=== PATIENT | male | born 1950 | race Caucasian/White ===

== ENCOUNTER 2019-06-13 14:47 | Inpatient (IN) ==
[2019-06-13] MEDS ORDERED: Aspirin 81 MG TAB.CHEW PO ONE (14:51)
[2019-06-13] MEDS ORDERED: *HR* Metoprolol 5 MG/5 ML VIAL IVP ONE (15:00)
[2019-06-13 15:12] LABS: Basophils % 0.5 %; Hematocrit 42.7 % (37.5-50.1); Hemoglobin 14.1 g/dL (12.9-16.9); Immature Granulocytes % 1.3 % (0-4); Lymphocytes # 0.2 K/mcL (0.6-4.6); Lymphocytes % 3.2 %; Mean Corpuscular Hemoglobin 35.8 pg (28.0-33.3); Mean Corpuscular Volume 108.4 fL (83.0-100.0); Mean Platelet Volume 11.3 fL (9.4-12.4); Monocytes # 0.5 K/mcL (0.0-1.3); Neutrophils # 6.5 K/mcL (1.6-8.9); Platelet Count 143 K/mcL (140-400); Red Blood Count 3.94 M/mcL (4.19-5.50); Red Cell Distribution Width 15.9 % (11.5-14.5); White Blood Count 7.4 K/mcL (4.3-11.1)
[2019-06-13 15:18] LABS: INR 1.1; Prothrombin Time 12.3 Seconds (9.4-12.1)
[2019-06-13 15:20] LABS: Activated Partial Thrombo Time 27.3 Seconds (26.0-36.0)
[2019-06-13 15:43] LABS: BUN/Creatinine Ratio 37 (6-26); Blood Urea Nitrogen 31 mg/dL (8-23); Calcium 10.1 mg/dL (8.6-10.3); Carbon Dioxide 26 mEq/L (23-29); Chloride 97 mEq/L (98-107); Glucose 151 mg/dL (70-105); Lipase 19 Units/L (11-82); Osmolality,Calculated 297 (280-300); Potassium 4.6 mEq/L (3.5-5.1); Sodium 139 mEq/L (136-145); Troponin I 0.05 ng/mL (< 0.04); eGFR For African Americans > 60 (> 60); eGFR For Non-African Americans > 60 (> 60)
[2019-06-13] MEDS ORDERED: Naloxone 0.4 MG/ML INJ IVP PRN (16:33)
[2019-06-13] MEDS ORDERED: *HR* Heparin 5,000 UNIT/ML VIAL IVP PRN ×2 (16:36)
[2019-06-13] MEDS ORDERED: *HR* Heparin 5,000 UNIT/ML VIAL IVP ONE (16:36)
[2019-06-13 16:43] LABS: Thyroid Stimulating Hormone 1.875 mcIU/mL (0.340-5.600)
[2019-06-13] MEDS ORDERED: Heparin 25,000 UNIT/250 ML D5W 25,000 UNIT/250 ML IV.SOLN IVC SCH (16:45)
[2019-06-13] MEDS ORDERED: Ciprofloxacin HCL Soln 5 ML BOTTLE RIGHT EYE SCH (17:15)
[2019-06-13] MEDS: Furosemide 40 MG/4 ML VIAL IVP SCH (18:54)
[2019-06-13] MEDS: Gabapentin 300 MG CAPSULE PO SCH (20:00)
[2019-06-13] MEDS: Ciprofloxacin HCL Soln 5 ML BOTTLE BOTH EYES SCH (20:01)
[2019-06-13] MEDS ORDERED: Perflutren Lipid Microsphere 1.3 ML in 0.9 % Sodium Chloride 8.7 ML IVP ONE (20:57)
[2019-06-13] MEDS: *HR* Metoprolol 5 MG/5 ML VIAL IVP PRN (21:49)
[2019-06-14] MEDS: Ciprofloxacin HCL Soln 5 ML BOTTLE BOTH EYES SCH ×4 (00:36→14:51)
[2019-06-14 02:52] LABS: Basophils % 0.2 %; Hematocrit 41.3 % (37.5-50.1); Hemoglobin 13.5 g/dL (12.9-16.9); Immature Granulocytes % 1.1 % (0-4); Lymphocytes # 0.6 K/mcL (0.6-4.6); Lymphocytes % 7.1 %; Mean Corpuscular HGB Conc 32.7 g/dL (31.6-35.5); Mean Corpuscular Hemoglobin 35.3 pg (28.0-33.3); Mean Corpuscular Volume 108.1 fL (83.0-100.0); Mean Platelet Volume 11.8 fL (9.4-12.4); Monocytes # 0.7 K/mcL (0.0-1.3); Monocytes % 8.1 %; Neutrophils # 6.7 K/mcL (1.6-8.9); Platelet Count 147 K/mcL (140-400); Red Blood Count 3.82 M/mcL (4.19-5.50); Red Cell Distribution Width 15.9 % (11.5-14.5); Segmented Neutrophils % 83.5 %
[2019-06-14 03:28] LABS: BUN/Creatinine Ratio 44 (6-26); Blood Urea Nitrogen 38 mg/dL (8-23); Calcium 9.8 mg/dL (8.6-10.3); Carbon Dioxide 22 mEq/L (23-29); Chloride 102 mEq/L (98-107); Glucose 117 mg/dL (70-105); Magnesium 2.1 mg/dL (1.6-2.6); Osmolality,Calculated 298 (280-300); Phosphorous 3.4 mg/dL (2.7-4.5); Potassium 4.5 mEq/L (3.5-5.1); Sodium 139 mEq/L (136-145); Troponin I 0.07 ng/mL (< 0.04); eGFR For African Americans > 60 (> 60); eGFR For Non-African Americans > 60 (> 60)
[2019-06-14] MEDS: *HR* Metoprolol 5 MG/5 ML VIAL IVP PRN (03:57)
[2019-06-14] MEDS ORDERED: 0.9 % Sodium Chloride 500 ML IVC PRN (04:09)
[2019-06-14] MEDS ORDERED: Azithromycin 500 MG in 0.9 % Sodium Chloride 250 ML IVPB SCH (08:00)
[2019-06-14] MEDS ORDERED: Lisinopril 20 MG TABLET PO SCH (09:00)
[2019-06-14] MEDS ORDERED: cefTRIAXone 1,000 MG in Water for inj. (sterile) 10 ML IVP SCH (09:00)
[2019-06-14] MEDS ORDERED: Aspirin 81 MG TAB.CHEW PO SCH (09:00)
[2019-06-14] MEDS ORDERED: Metoprolol XL (24 HR) Succ 25 MG TAB.ER.24H PO SCH (09:00)
[2019-06-14] MEDS ORDERED: D5% in Water 250 ML ONE (09:43)
[2019-06-14] MEDS ORDERED: Artificial Tears SOLN 15 ML BOTTLE BOTH EYES PRN (09:44)
[2019-06-14] MEDS ORDERED: Sodium Bicarbonate 150 MEQ in D5% in Water 1,000 ML IVC SCH (09:45)
[2019-06-14] MEDS ORDERED: FentaNYL (PF) 1,000 MCG in 0.9 % Sodium Chloride 80 ML IVC SCH (09:45)
[2019-06-14] MEDS ORDERED: Dexmedetomidine HCl 400 MCG/100 ML MLS IVC SCH (09:45)
[2019-06-14] MEDS: EPINEPHrine 1 MG in D5% in Water 250 ML IVC SCH ×2 (09:46→11:25)
[2019-06-14 10:01] LABS: Calcium 11.7 mg/dL (8.6-10.3); Magnesium 2.6 mg/dL (1.6-2.6); Potassium 4.5 mEq/L (3.5-5.1)
[2019-06-14 10:06] LABS: Troponin I 0.12 ng/mL (< 0.04)
[2019-06-14] MEDS ORDERED: Sodium Bicarbonate 50 MEQ/50 ML VIAL IVP ONE ×2 (10:28→10:56)
[2019-06-14] MEDS ORDERED: Isovue-370 500 ML BOTTLE IVP ONE (10:29)
[2019-06-14] MEDS ORDERED: *HR* Atropine Sulfate 1 MG/10 ML SYRINGE IVP ONE ×3 (10:58→15:00)
[2019-06-14] MEDS ORDERED: EPINEPHrine 5 MG in D5% in Water 250 ML IVC SCH (11:00)
[2019-06-14 11:21] LABS: VBG HCO3 22 mEq/L (21-27); VBG PCO2 118 mmHg (41-51); VBG PH 6.89 pH Units (7.32-7.42); VBG PO2 < 17 mmHg (25-50)
[2019-06-14] MEDS ORDERED: 0.9 % Sodium Chloride 250 ML ONE (11:21)
[2019-06-14] MEDS ORDERED: EPINEPHrine 1 MG/ML VIAL ONE (11:21)
[2019-06-14] MEDS ORDERED: *HR* EPINEPHrine 1 MG/10 ML SYRINGE IVP ONE ×3 (11:22→16:45)
[2019-06-14] MEDS: Furosemide 40 MG/4 ML VIAL IVP SCH (11:25)
[2019-06-14] MEDS: Gabapentin 300 MG CAPSULE PO SCH (11:25)
[2019-06-14] MEDS ORDERED: Hydrocortisone Sodium Succ 100 MG/2 ML VIAL IVP ONE (11:39)
[2019-06-14] MEDS ORDERED: Norepinephrine 8 MG in 0.9 % Sodium Chloride 250 ML IVC SCH (11:45)
[2019-06-14] MEDS ORDERED: Scopolamine Patch 1.5 MG PATCH.TD72 TD ONE (11:45)
[2019-06-14] MEDS ORDERED: *HR* FentaNYL (PF) 100 MCG/2 ML VIAL IVP PRN (11:45)
[2019-06-14] MEDS ORDERED: *HR* LORazepam 2 MG/ML VIAL IVP PRN (11:45)
[2019-06-14] MEDS ORDERED: Haloperidol Lactate 5 MG/ML VIAL IVP PRN (11:46)
[2019-06-14] MEDS ORDERED: Morphine Sulfate 2 MG/ML SYRINGE IVP PRN (11:53)
[2019-06-14] MEDS ORDERED: Artificial Tears SOLN 15 ML BOTTLE BOTH EYES SCH (12:00)
[2019-06-14] MEDS ORDERED: *HR* Atropine Sulfate 1 MG/10 ML SYRINGE IV ONE (12:01)
[2019-06-14 15:05] VITALS: BP 98/78
[2019-06-14] MEDS ORDERED: Piperacillin/Tazobactam 3.375 GM in 0.9 % Sodium Chloride Mini Bag 100 ML IVPB SCH (16:00)
[2019-06-14] MEDS ORDERED: D5 IV ONE (16:45)
[2019-06-14] MEDS ORDERED: WATER IV ONE (16:45)
[2019-06-14] MEDS ORDERED: Chlorhexidine Rinse 15 ML MOUTHWASH MM SCH (21:00)
[2019-06-14 23:23] LABS: ABG Base Excess -13 mEq/L (-2 to 3); ABG HCO3 23 mEq/L (21-27); ABG Oxygen Saturation 94 % (95-98); ABG PCO2 122 mmHg (35-45); ABG PH 6.89 pH Units (7.32-7.45); ABG PO2 122 mmHg (85-104); ABG TCO2 27 mEq/L (20-26)
[2019-06-15] MEDS ORDERED: Pantoprazole 40 MG VIAL IVP SCH (09:00)
== END 2019-06-14 12:02 | disposition expired | DRG 291 ==
LOC: EMEROOARM 14:47 → 2NENU 14:47 → OBSVTOIN 16:44 → 2NENU 18:26 → ICNU 06-14 10:13
PROVIDERS: ADMIT Family Medicine; ATTEND Family Medicine